=== PATIENT | female | born 1995 | race Caucasian/White ===

== ENCOUNTER 2016-10-29 14:55 | Observation (INO) | payer OTHER ==
[~2016-10-29] VITALS: Ht 165.1 cm; Wt 60.0 kg
[2016-10-29] MEDS ORDERED: SODIUM CHLORIDE 0.9% 1000ML 1,000 ML IV STA (16:21)
[2016-10-29] MEDS ORDERED: ONDANSETRON INJ 2 MG/ML 2 ML VIAL IV STA (16:21)
[2016-10-29 16:44] LABS: ALT/SGPT 24 U/L (12-78); AST/SGOT 24 U/L (15-37); BLOOD UREA NITROGEN 10 mg/dl (7-18); BUN/CREATININE RATIO 12.4 (10-20); CALCIUM 9.3 mg/dl (8.5-10.1); CARBON DIOXIDE 27 mmol/L (21-32); CHLORIDE 105 mmol/L (98-107); GLUCOSE 108 mg/dl (70-99); POTASSIUM 3.4 mmol/L (3.5-5.1); SODIUM 142 mmol/L (136-145)
[2016-10-29 16:47] LABS: BASO % 0.1 %; BASO ABS # 0.01 K/uL (0-0.2); COMPLETE YES; HEMATOCRIT 36.9 % (37-47); IG% 0.3 %; LYMPH % 5.8 %; LYMPH ABS # 0.68 K/uL (1.2-3.4); MEAN CELL VOLUME 88.1 fL (80-100); MEAN CORPUSCULAR HEMOGLOBIN 29.4 pg (25-34); MEAN CORPUSCULAR HGB CONC 33.3 g/dl (32-36); MONO % 2.9 %; NEUT % 90.9 %; PLATELET COUNT 353 K/uL (130-400); RED BLOOD COUNT 4.19 M/uL (4.2-5.4); WHITE BLOOD COUNT 11.74 K/uL (4.8-10.8)
[2016-10-29 16:47] LABS: ALKALINE PHOSPHATASE 79 U/L (45-117)
[2016-10-29] MEDS: MoRPHine SULFATE 4 MG/ML 1 ML CARP\\VIAL IV PRN ×3 (16:48→20:02)
[2016-10-29 16:56] LABS: PREG INTERNAL NEGATIVE QC NEG CLEAR BACKGROUND; PREG INTERNAL POSITIVE QC POS CONTROL LINE
[2016-10-29 16:58] LABS: PROTHROMBIN TIME (PATIENT) 11.2 SECONDS (9.0-12.0)
--- NOTE | 2016-10-29 17:37 | DIAGNOSTIC IMAGING REPORT ---
PA CHEST RADIOGRAPH AND UPRIGHT AND SUPINE AP RADIOGRAPHS OF THE ABDOMEN CLINICAL HISTORY: Abdominal pain and vomiting. COMPARISON STUDY: No previous studies for comparison. FINDINGS: Lung volumes are normal. Lungs are clear. There is no pneumothorax or pleural effusion. Cardiac size is normal. Mediastinal contours are normal. There is no evidence of pulmonary edema. There is no free air. The bowel gas pattern is normal. IMPRESSION: 1. No free air or evidence of bowel obstruction. 2. No acute cardiopulmonary findings. Electronically signed by: Jarett Bains M.D. 10/29/2016 5:36 PM Dictated Date/Time: 10/29/2016 5:35 PM
[2016-10-29] MEDS ORDERED: OPTIRAY 320 IV PRN (18:30)
[2016-10-29 19:04] LABS: URINE APPEARANCE CLEAR (CLEAR); URINE BILIRUBIN NEG (NEG); URINE COLOR DK YELLOW; URINE EPITHELIAL CELL AUTO >30 /lpf (0-5); URINE NITRITE NEG (NEG); URINE SPECIFIC GRAVITY 1.032 (1.000-1.030); UROBILINOGEN NEG (NEG)
[2016-10-29 19:05] LABS: MANUAL MICROSCOPIC REQUIRED? NO; REVIEW REQ? NO
[2016-10-29] MEDS ORDERED: SODIUM CHLORIDE 0.9% 1000ML 1,000 ML IV ONE (19:30)
[2016-10-29] MEDS ORDERED: ACETAMINOPHEN 500 MG TAB PO ONE (19:58)
--- NOTE | 2016-10-29 21:17 | DIAGNOSTIC IMAGING REPORT ---
CT OF THE ABDOMEN AND PELVIS WITH CONTRAST CLINICAL HISTORY: Mid abdominal pain. Hematemesis. COMPARISON STUDY: Abdominal series performed earlier today. TECHNIQUE: Following IV administration of 118 mL of Optiray-320, axial images of the abdomen and pelvis were obtained from the lung bases to the proximal femurs. Images were reviewed in the axial, sagittal, and coronal planes. IV contrast was administered without complication. Oral contrast was administered. CT DOSE: 293.25 mGy.cm FINDINGS: Lung bases are clear. Liver, spleen, adrenal glands, kidneys and pancreas are normal. There is no pneumatosis, free air or portal venous gas. There is no biliary or pancreatic ductal dilatation. Note is made of a tubular structure within the right hemipelvis that measures 9 mm in caliber. This does not contain oral contrast. This extends superiorly and is presacral in location. This appears to be blind ending and suggests an abnormal appendix. This contains gas and fluid. No definite periappendiceal infiltration is present. Evaluation is difficult given a paucity of intra-abdominal fat. There is no evidence for a bowel obstruction. Ovaries are not enlarged. IMPRESSION: Findings suspicious for but not diagnostic of acute appendicitis. A tubular structure within the right hemipelvis measures 9 mm in caliber and extends to the presacral region and appears to be blind ending. This suggests an abnormal appendix although evaluation is difficult given a paucity of intra-abdominal fat. Surgical consultation is recommended. Electronically signed by: Jarett Bains M.D. 10/29/2016 9:16 PM Dictated Date/Time: 10/29/2016 8:59 PM
[2016-10-29] MEDS ORDERED: BUPIVACAINE 0.5 % 5 MG/1 ML MPF 30ML VIAL ONE (22:08)
--- NOTE | 2016-10-29 22:09 | EMERGENCY ROOM VISIT NOTE ---
ED Visit Note First contact with patient: 15:55 Chief Complaint: Abdominal pain. History of Present Illness: Ms. William is a 21 year-old female who ambulates into the ED accompanied by male friend complaining of left upper quadrant abdominal pain. Historically patient reports no significant gastrointestinal disorders or abdominal surgeries. Patient reports yesterday she had 3-4 episodes of light brown watery stools but no abdominal pain. She had not taken anything for her watery stools prior to arrival at the hospital. Patient reports that a proximally 3-4 hours before she arrived in the emergency department she was sitting in a class and started having some mild abdominal discomfort. She reports it felt like she needed to go to the bathroom. She reports leaving the class and attempted to go to the bathroom but only passed gas. She then went back to class and when the class was dismissed she was leaving and became nauseated and had approximately 5 episodes of vomiting. She reports the last episode of vomiting she saw bright red blood in her vomitus. Some time during the vomiting process she reports that she developed right upper quadrant abdominal pain. Since that time her pain has been constant has gradually increased in intensity. Currently she describes her pain as a sharp sensation. She rates her discomfort 10/10. She denies true radiation but does report she feels a little bit of discomfort in the right flank. Her pain worsens with all movement of the body/torso. She has not identified any alleviating factors related to the pain. She has not taken any medications for pain or nausea/vomiting prior to arrival at the hospital. Associated with her pain she is still nauseated but has not vomited since prior to arrival at the hospital and she has been having chills, lightheadedness. Patient denies milagros fevers, sweats, skin eruptions, skin color changes, upper respiratory tract symptoms, shortness of breath, chest pain, return of diarrhea , constipation, rectal bleeding, black/tarry stools, urinary symptoms, hematuria , vaginal bleeding, vaginal discharge. Review of Systems: As noted above in history of present illness. All body systems were reviewed and found to be negative as noted above. Past Medical History: Bronchitis, pneumonia. Current Medications: Patient denies. Allergies to Medications: Patient denies. Social History: Patient is currently employed; she feels safe in her home environment; she denies tobacco use; she does admit to alcohol use but reports she has not been drinking for approximately one week. Physical Examination: Vital Signs: Date Time Temp Pulse Resp B/P Pulse Ox O2 Delivery O2 Flow Rate FiO2 10/29/16 21:29 117 10/29/16 19:59 37.7 10/29/16 17:44 79 18 96/52 100 Room Air 10/29/16 17:32 85 10/29/16 14:56 36.9 76 18 90/49 96 Room Air GENERAL: 21-year-old female in mild to moderate distress due to pain, nontoxic- appearing, afebrile and hemodynamically stable. NEUROLOGICAL: Awake, alert and oriented to person, place and time. Answering questions appropriately and following commands. Normal gait. Good hand eye coordination. SKIN: Warm, dry and pink. No soft tissue eruptions or trauma noted. HEENT: Atraumatic and normocephalic. PERRLA. Sclera white and conjunctiva pink. Oral cavity moist and pink. Pharynx is nonerythematous or edematous. Speech normal. No lymphadenopathy. Trachea midline. No jugular venous distention. BACK: No tenderness over the bony spine. No CVA tenderness. THORAX: Lungs sounds are clear to auscultation and equal bilaterally with symmetrical chest wall. No wheezing, rales or rhonchi. No crepitus, tenderness , subcutaneous air or deformities noted. HEART: Regular rate and rhythm. No gallops, rubs or murmurs are appreciated. ABDOMEN: Flat and soft with [id number] tenderness in the mid left upper quadrant and into the proximal upper left quadrant closer to the midline. No palpable epigastric tenderness or right-sided abdominal tenderness. Decreased bowel sounds in all quadrants. No guarding, rigidity or organomegaly. EXTREMITIES: Moves all extremities well on command and with purpose. All distal neurovascular statuses are intact and equal bilaterally. ED Course: Patient is assessed as noted above. Laboratory Testing: Test 10/29/16 16:05 10/29/16 16:32 10/29/16 18:50 Range/Units Sodium Level 142 136-145 mmol/L Potassium Level 3.4 3.5-5.1 mmol/L Chloride Level 105 98-107 mmol/L Carbon Dioxide Level 27 21-32 mmol/L Anion Gap 10.0 3-11 mmol/L Blood Urea Nitrogen 10 7-18 mg/dl Creatinine 0.80 0.60-1.20 mg/dl Est Creatinine Clear Calc Drug Dose 100.9 ml/min Estimated GFR () 123.0 Estimated GFR (Non- 106.1 BUN/Creatinine Ratio 12.4 10-20 Random Glucose 108 70-99 mg/dl Calcium Level 9.3 8.5-10.1 mg/dl Total Bilirubin 0.4 0.2-1 mg/dl Direct Bilirubin < 0.1 0-0.2 mg/dl Aspartate Amino Transf (AST/SGOT) 24 15-37 U/L Alanine Aminotransferase (ALT/SGPT) 24 12-78 U/L Alkaline Phosphatase 79 45-117 U/L Total Protein 8.4 6.4-8.2 gm/dl Albumin 4.5 3.4-5.0 gm/dl Lipase 74 73-393 U/L Human Chorionic Gonadotropin, Qual NEG NEG White Blood Count 11.74 4.8-10.8 K/uL Red Blood Count 4.19 4.2-5.4 M/uL Hemoglobin 12.3 12.0-16.0 g/dL Hematocrit 36.9 37-47 % Mean Corpuscular Volume 88.1 80-100 fL Mean Corpuscular Hemoglobin 29.4 25-34 pg Mean Corpuscular Hemoglobin Concent 33.3 32-36 g/dl Platelet Count 353 130-400 K/uL Mean Platelet Volume 9.0 7.4-10.4 fL Neutrophils (%) (Auto) 90.9 % Lymphocytes (%) (Auto) 5.8 % Monocytes (%) (Auto) 2.9 % Eosinophils (%) (Auto) 0.0 % Basophils (%) (Auto) 0.1 % Neutrophils # (Auto) 10.68 1.4-6.5 K/uL Lymphocytes # (Auto) 0.68 1.2-3.4 K/uL Monocytes # (Auto) 0.34 0.11-0.59 K/uL Eosinophils # (Auto) 0.00 0-0.5 K/uL Basophils # (Auto) 0.01 0-0.2 K/uL RDW Standard Deviation 42.6 36.4-46.3 fL RDW Coefficient of Variation 13.3 11.5-14.5 % Immature Granulocyte % (Auto) 0.3 % Immature Granulocyte # (Auto) 0.03 0.00-0.02 K/uL Prothrombin Time 11.2 9.0-12.0 SECONDS Prothromb Time International Ratio 1.0 0.9-1.1 Activated Partial Thromboplast Time 26.4 21.0-31.0 SECONDS Partial Thromboplastin Ratio 1.0 Urine Color DK YELLOW Urine Appearance CLEAR CLEAR Urine pH 6.0 4.5-7.5 Urine Specific [place] 1.032 1.000-1.030 Urine Protein TRACE NEG Urine Glucose (UA) NEG NEG Urine Ketones 4+ NEG Urine Occult Blood 2+ NEG Urine Nitrite NEG NEG Urine Bilirubin NEG NEG Urine Urobilinogen NEG NEG Urine Leukocyte Esterase TRACE NEG Urine WBC (Auto) 5-10 0-5 /hpf Urine RBC (Auto) 0-4 0-4 /hpf Urine Hyaline Casts (Auto) 1-5 0-5 /lpf Urine Epithelial Cells (Auto) >30 0-5 /lpf Urine Bacteria (Auto) 1+ NEG Acute Abdominal X-Ray Series: Was read by myself and the radiologist showing a normal-appearing PHS with no signs of infiltrates, effusions or pneumothorax. Normal heart silhouette and bony anatomy. Abdominal component shows a nonspecific bowel gas pattern with no signs of obstruction or free air. Contrast Abdominal/Pelvic CT: Was reviewed by myself and read by the radiologist and shows findings suspicious but not diagnostic for an acute appendicitis with a tubular structure within the right hemipelvis. Patient was hydrated with approximately 2 L of normal saline, she received a total of 12 mg of morphine IV for pain, 4 mg of Zofran IV for nausea and while in the emergency department she did become febrile and received 1 gram of Tylenol by mouth for pain. Patient was reassessed multiple times during her stay in the emergency department. I received her CT results I did go reevaluate the patient and on palpation she no longer had any tenderness on the left side of her abdomen but had moderate tenderness with guarding over McBurney's point. Patient's case was reviewed with Dr. Tian; we agreed on diagnostic approach, treatment, disposition and plan. Patient's case was consulted with Dr. Bronwyn Mcgee, general surgery; she surgically evaluated the patient and has recommended surgery. Patient was educated about tonight's findings. Clinical Impression: Acute abdominal pain. Possible acute appendicitis. Decision-Making: Initially my differential diagnosis I considered splenomegaly, constipation, bowel obstruction, perforated viscus, pancreatitis, gastritis, colitis and other causes. Disposition and Plan: Patient's care was transferred to Dr. Mcgee for surgical evaluation; please see her notes and orders for final disposition and plan.
[2016-10-29] MEDS ORDERED: CEFOXITIN SOD 2 GM VIAL IV STA (22:10)
--- NOTE | 2016-10-29 22:10 | Pre-Operative Consultation ---
History General Date of Service: Oct 29, 2016. Stated Complaint: abdominal pain HPI HPI: The patient is a 21 year old female being seen at the request of Fermin DOWNS for a CT scan that is suggestive of acute appendicitis. She presented to the ER complaining of 3-4 days of diarrhea and sharp crampy abdominal pain similar to gas cramps. Today, she developed vomiting on five occasions, the last of which had streaks of bright red blood in it. She felt lightheaded and dizzy and was brought to the ER by her friends. She developed a fever while in the ER and the pain changed to lower in the abdomen. CT scan was done and shows a blind ending 9 mm tubular structure presacral c/w acute appendicitis. Her last meal was at 11:30 am today. Historian: patient Anticipated Procedure: laparoscopic appendectomy Procedure Urgency: Emergency Risk Assessment Major Risk Factors: no known hx of decompensated CHF, no known hx of recent SD , no known hx of severe valvular disease, no known hx of unstable or severe angina Pre-Op Conditions: no known hx of COPD, no known hx of arrhythmia, no known hx of asthma, no known hx of cerebrovascular disease, no known hx of compensated CHF, no known hx of diabetes, no known hx of elevated BNP, no known hx of family h/o anesthesia problems, no known hx of h/o anesthesia problems, no known hx of h/o orthostatic intolerance, no known hx of history of SD, no known hx of implanted defibrillator, no known hx of liver disease, no known hx of other, no known hx of pacemaker, no known hx of problems w/ neck or jaw, no known hx of recent PCI, no known hx of renal insufficiency, no known hx of seizure disorder, no known hx of stable angina, no known hx of thyroid disease, no known hx of valvular heart disease Daily beta martine use?: No Medical & Surgical History Past Medical History: no pertinent history Past Surgical History: no surgical history Family History Family History: no pertinent family hx Social History Smoking Status: Never Smoker Occupation status: [employer] student Allergies Allergies: Coded Allergies: No Known Allergies (Unverified , 10/29/16) Medications Current Inpatient Medications Current Inpatient Medications Medications (Trade) Dose Ordered Sig/Laney Route Start Time Stop Time Status Last Admin Dose Admin Morphine Sulfate (MoRPHine SULFATE INJ) 4 mg Q1H PRN IV 10/29/16 16:30 11/12/16 16:29 10/29/16 20:02 4 MG Ioversol (Optiray 320) 100 ml UD PRN IV 10/29/16 18:30 11/02/16 18:29 Review of Systems Review of Systems Constitutional: fever, malaise Eyes: reports: no symptoms ENT: reports: no symptoms reported Cardiovascular: reports: no symptoms reported Respiratory: reports: short of breath (at time of vomiting) Gastrointestinal: see HPI Genitourinary - Female: reports: no symptoms Musculoskeletal: no symptoms reported Integumentary: no symptoms reported Psychiatric: reports: no symptoms Endocrine: no symptoms Physical Exam Physical Exam General Appearance: + WD/WN, No distress Ears, Nose, Throat: + normal ENT inspection Neck: No abnormal inspection, No limited range of motion Respiratory: No accessory muscle use, No chest tenderness, No decreased breath sounds Cardiovascular: No JVD, No abnormal rate, No diastolic murmur, No systolic murmur Abdomen: + tenderness (lower abdomen both right and left sides), No abnormal bowel sounds, No distension, No hernia Extremities: No abnormal range of motion, No edema Neurologic/Psychiatric: No abnormal advertising statistical clerk II-XII, No decreased LOC Skin Characteristics: No cyanosis, No mottling Diagnostics Labs Labs Results Past 24 Hours Test 10/29/16 16:05 10/29/16 16:32 10/29/16 18:50 Range/Units Sodium Level 142 136-145 mmol/L Potassium Level 3.4 3.5-5.1 mmol/L Chloride Level 105 98-107 mmol/L Carbon Dioxide Level 27 21-32 mmol/L Anion Gap 10.0 3-11 mmol/L Blood Urea Nitrogen 10 7-18 mg/dl Creatinine 0.80 0.60-1.20 mg/dl Est Creatinine Clear Calc Drug Dose 100.9 ml/min Estimated GFR () 123.0 Estimated GFR (Non- 106.1 BUN/Creatinine Ratio 12.4 10-20 Random Glucose 108 70-99 mg/dl Calcium Level 9.3 8.5-10.1 mg/dl Total Bilirubin 0.4 0.2-1 mg/dl Direct Bilirubin < 0.1 0-0.2 mg/dl Aspartate Amino Transf (AST/SGOT) 24 15-37 U/L Alanine Aminotransferase (ALT/SGPT) 24 12-78 U/L Alkaline Phosphatase 79 45-117 U/L Total Protein 8.4 6.4-8.2 gm/dl Albumin 4.5 3.4-5.0 gm/dl Lipase 74 73-393 U/L Human Chorionic Gonadotropin, Qual NEG NEG White Blood Count 11.74 4.8-10.8 K/uL Red Blood Count 4.19 4.2-5.4 M/uL Hemoglobin 12.3 12.0-16.0 g/dL Hematocrit 36.9 37-47 % Mean Corpuscular Volume 88.1 80-100 fL Mean Corpuscular Hemoglobin 29.4 25-34 pg Mean Corpuscular Hemoglobin Concent 33.3 32-36 g/dl Platelet Count 353 130-400 K/uL Mean Platelet Volume 9.0 7.4-10.4 fL Neutrophils (%) (Auto) 90.9 % Lymphocytes (%) (Auto) 5.8 % Monocytes (%) (Auto) 2.9 % Eosinophils (%) (Auto) 0.0 % Basophils (%) (Auto) 0.1 % Neutrophils # (Auto) 10.68 1.4-6.5 K/uL Lymphocytes # (Auto) 0.68 1.2-3.4 K/uL Monocytes # (Auto) 0.34 0.11-0.59 K/uL Eosinophils # (Auto) 0.00 0-0.5 K/uL Basophils # (Auto) 0.01 0-0.2 K/uL RDW Standard Deviation 42.6 36.4-46.3 fL RDW Coefficient of Variation 13.3 11.5-14.5 % Immature Granulocyte % (Auto) 0.3 % Immature Granulocyte # (Auto) 0.03 0.00-0.02 K/uL Prothrombin Time 11.2 9.0-12.0 SECONDS Prothromb Time International Ratio 1.0 0.9-1.1 Activated Partial Thromboplast Time 26.4 21.0-31.0 SECONDS Partial Thromboplastin Ratio 1.0 Urine Color DK YELLOW Urine Appearance CLEAR CLEAR Urine pH 6.0 4.5-7.5 Urine Specific [place] 1.032 1.000-1.030 Urine Protein TRACE NEG Urine Glucose (UA) NEG NEG Urine Ketones 4+ NEG Urine Occult Blood 2+ NEG Urine Nitrite NEG NEG Urine Bilirubin NEG NEG Urine Urobilinogen NEG NEG Urine Leukocyte Esterase TRACE NEG Urine WBC (Auto) 5-10 0-5 /hpf Urine RBC (Auto) 0-4 0-4 /hpf Urine Hyaline Casts (Auto) 1-5 0-5 /lpf Urine Epithelial Cells (Auto) >30 0-5 /lpf Urine Bacteria (Auto) 1+ NEG Lab Interpretation Lab Interpretation: labs were reviewed Diagnostic Radiology Diagnostic Radiology CT scan suggestive of acute appendicitis with a 9 mm blind ending tubular structure that does not fill with contrast. No periappendiceal inflammation. Impression Assessment and Plan Assessment and Plan 21 yr old woman with probable acute appendicitis although unusual presentation. Discussed laparoscopic appendectomy with risks of bleeding, infection, conversion to open, postop abscess/ ileus. Expected postop recovery period of 1- 2 wks discussed. Consent signed. For OR today.
[2016-10-29] MEDS ORDERED: PROPOFOL IV EMULSION 10 MG/ML 20 ML VIAL IV ONE (22:35)
[2016-10-29] MEDS ORDERED: SUCCINYLCHOLINE 100MG/5ML SYR IV ONE (22:36)
[2016-10-29] MEDS ORDERED: FENTANYL CITRATE INJ 50 MCG/1 ML 2 ML VIAL ONE ×2 (22:36→22:37)
[2016-10-29] MEDS ORDERED: DEXAMETHASONE SOD INJ 4 MG/ML VIAL ONE (22:38)
[2016-10-29] MEDS ORDERED: ONDANSETRON INJ 2 MG/ML 2 ML VIAL ONE (22:38)
[2016-10-29] MEDS ORDERED: MIDAZOLAM HCL 1 MG/ML 2ML VIAL ONE (22:38)
[2016-10-29] MEDS ORDERED: CISATRACURIUM BESYLATE IV SOLN 2 MG/ML 10 ML VIAL ONE (22:38)
[2016-10-29 22:45] VITALS: O2SAT 100
--- NOTE | 2016-10-29 23:50 | [facility] Post Operative Brief Note ---
Immediate Operative Summary Operative Date Oct 29, 2016. Pre-Operative Diagnosis Acute Appendicitis Post-Operative Diagnosis same as preop Procedure(s) Performed Laparoscopic appendectomy Surgeon Dr. Bronwyn Mcgee Environmental Services Technician Surgeon(s) none Estimated Blood Loss 5 ml Findings acute nonperforated appendicitis Fluids (cc crystalloids) 800 cc Specimens A: Appendix Drains none Anesthesia GET Complication(s) None Disposition Recovery Room / PACU
--- NOTE | 2016-10-29 23:55 | Discharge Instructions ---
Discharge Instructions Admission Reason for Admission: Stomach Pain, Vomiting Blood Discharge Discharge Diagnosis / Problem: ACUTE APPENDICITIS Discharge Goals Goal(s): Decrease discomfort Activity Recommendations Activity Limitations: resume your previous activity Lifting Limitations: no more than 10 pounds (for 2 wks) Exercise/Sports Limitations: until after follow-up appointment (2 wks) May Resume Sexual Activity: after two weeks Shower/Bathe: tomorrow (remove outer gauze dressings prior to shower, leave steristrips) Driving or Machine Use: resume 3 days after discharge (if off of narcotics) . Current Hospital Diet Patient's current hospital diet: Regular Diet Discharge Diet Recommended Diet: Regular Diet Procedures Procedures Performed: Laparoscopic appendectomy Pending Studies Studies pending at discharge: no School Instructions Return To School: 1 week Medical Emergencies . Who to Call and When: Medical Emergencies: If at any time you feel your situation is an emergency, please call 911 immediately. . Non-Emergent Contact Non-Emergency issues call your: Surgeon ([phone]) . "Provider Documentation" section prepared by Bronwyn Mcgee. VTE Core Measure Inpt VTE Proph given/why not?: SCD's [place] Drug Monitoring Program Search Results: no issues identified
[2016-10-30] VITALS (10 sets, daily range): BP systolic 81–105; BP diastolic 51–63; PULSE 68–92; TEMP 36.5–37.2; O2SAT 96–99; Ht 165.1 cm; Wt 60.0 kg
[2016-10-30] MEDS ORDERED: MoRPHine SULFATE 4 MG/ML 1 ML CARP\\VIAL IV PRN
[2016-10-30] MEDS ORDERED: MoRPHine SULFATE 2 MG/ML CARP IV PRN ×2
[2016-10-30] MEDS ORDERED: OXYCODONE/ACETAMINOPHEN 5-325 TAB PO PRN
[2016-10-30] MEDS ORDERED: ACETAMINOPHEN 325 MG TAB PO PRN
[2016-10-30] MEDS ORDERED: HYDROmorphone INJ 2 MG/ML SYR/VIAL ONE (00:05)
[2016-10-30] MEDS ORDERED: KETOROLAC TROMETHAMINE 30 MG/ML VIAL IV STA (00:09)
[2016-10-30] MEDS ORDERED: ATROPINE SULFATE 0.1 MG/ML 5ML SYR IV ONE (00:11)
[2016-10-30] MEDS ORDERED: HYDROmorphone INJ 1 MG/ML SYR IV PRN (00:15)
[2016-10-30] MEDS ORDERED: FLUMAZENIL 0.1 MG/1 ML 10 ML VIAL IV PRN (00:15)
[2016-10-30] MEDS ORDERED: ONDANSETRON INJ 2 MG/ML 2 ML VIAL IV PRN ×2 (00:15)
[2016-10-30] MEDS ORDERED: NALOXONE HCL 0.4 MG/1 ML VIAL/CARP IV PRN (00:15)
[2016-10-30] MEDS ORDERED: PROMETHAZINE HCL INJ 12.5 MG in SODIUM CHLORIDE 0.9% 50ML 50 ML IV PRN (00:15)
[2016-10-30] MEDS ORDERED: EpHEDrine SULFATE INJ 50 MG/ML AMP IV PRN (00:15)
[2016-10-30] MEDS ORDERED: ATROPINE SULFATE 0.1 MG/ML 5ML SYR IV PRN (00:15)
--- NOTE | 2016-10-30 00:34 | Anesthesiology Progress Note ---
Anesthesia Post Op Note Date & Time Oct 30, 2016 at 00:35 Vital Signs Pain Intensity: 2 Vital Signs Past 12 Hours Date Time Temp Pulse Resp B/P Pulse Ox O2 Delivery O2 Flow Rate FiO2 10/30/16 00:30 88 20 107/54 99 Nasal Cannula 3 10/30/16 00:20 88 20 110/60 98 Nasal Cannula 3 10/30/16 00:10 84 16 113/61 98 Nasal Cannula 3 10/30/16 00:01 38.1 89 16 112/67 95 Nasal Cannula 3 10/29/16 22:45 104 18 117/68 100 10/29/16 21:29 117 10/29/16 19:59 37.7 10/29/16 17:44 79 18 96/52 100 Room Air 10/29/16 17:32 85 10/29/16 14:56 36.9 76 18 90/49 96 Room Air Notes Mental Status: alert / awake / arousable, participated in evaluation Pt Amnestic to Procedure: Yes Nausea / Vomiting: adequately controlled Pain: adequately controlled Airway Patency, RR, SpO2: stable & adequate BP & HR: stable & adequate Hydration State: stable & adequate Anesthetic Complications: no major complications apparent
--- NOTE | 2016-10-30 00:42 | OPERATIVE REPORT ---
DATE OF OPERATION: 10/29/2016 PREOPERATIVE DIAGNOSIS: Acute appendicitis. POSTOPERATIVE DIAGNOSIS: Same. OPERATIVE PROCEDURE: Laparoscopic appendectomy. SURGEON: Dr. Bronwyn Mcgee. ANESTHESIA: General endotracheal anesthesia. ESTIMATED BLOOD LOSS: 5 mL IV FLUIDS: 800 mL. SPECIMENS: Appendix. COMPLICATIONS: None. DRAINS: None. OPERATIVE FINDINGS: Non-perforated acute appendicitis. INDICATIONS: Ms. William is a 21-year-old woman, who presented with acute appendicitis. She was consented for a laparoscopic appendectomy. PROCEDURE: The patient was on Mefoxin preoperatively. After the induction of general endotracheal anesthesia, she was placed in sequential compression devices. She had voided just prior to the procedure. Her abdomen was then sterilely prepped and draped. She was positioned in Trendelenburg. A supraumbilical incision was made and a Veress needle was placed into the peritoneal cavity. This was tested with the saline drop test. Pneumoperitoneum was established. Initial pressure was 1 mmHg and this was taken up to 15 mmHg. A 5-mm trocar was placed, another 5 mm was placed under direct vision in the left lower quadrant. The umbilical trocar was changed out to a 12 mm under direct vision and a 5 mm was placed in the midline pubic area. The appendix was visualized coursing into the pelvis; it was dilated, inflamed. The appendix was grasped at its base and a window created at the base of the appendix on the cecum. The appendix was divided off the cecum with a firing of the JETT 45 purple-load stapler. The appendiceal mesentery was taken with a second firing of the 45 jordan load stapler. The appendix was placed in an Endobag and removed through the umbilical incision. The abdomen was irrigated and suctioned. Hemostasis was noted to be present. Pneumoperitoneum was released. The trocars were removed. 30 mL of 0.5% Marcaine had been used for local anesthesia in all the incisions. The fascia of the umbilical incision was closed with 0 Vicryl stitches placed anteriorly. The skin of all 3 incisions was closed with running subcuticular 4-0 Vicryl sutures. Steri-Strips and sterile dressings were applied. She was awakened and taken to recovery in stable condition. I attest to the content of the Intraoperative Record and any orders documented therein. Any exceptio ns are noted below.
[2016-10-30] MEDS ORDERED: IV FLUIDS COMPLETED PRN (01:15)
[2016-10-30] MEDS: D5W AND 1/2NSS + 20MEQ KCL 1,000 ML IV SCH ×3 (01:34→17:30)
[2016-10-30] MEDS: OXYCODONE/ACETAMINOPHEN 5-325 TAB PO PRN ×3 (01:35→16:12)
[2016-10-30] MEDS ORDERED: NURSING VERBAL MED ORDER ONE (02:45)
[2016-10-30] MEDS ORDERED: LORAZEPAM INJ 1 MG in SYRINGE 0.5 ML IV PRN (03:00)
[2016-10-30] MEDS: CEFOXITIN IV 1,000 MG in DEXTROSE 5% 50ML 50 ML IV SCH ×3 (03:54→16:12)
--- NOTE | 2016-10-30 13:18 | Surgery Progress Note ---
Surgery Progress Note Date of Service Oct 30, 2016. Subjective Feels well. Pain controlled. No nausea. Has some shoulder pain. Objective Vital Signs: Date Time Temp Pulse Resp B/P Pulse Ox O2 Delivery O2 Flow Rate FiO2 10/30/16 11:44 36.6 72 18 96/61 96 Room Air 10/30/16 08:00 Room Air 10/30/16 07:54 36.7 72 17 94/60 96 Room Air 10/30/16 04:20 36.5 68 16 94/57 99 Nasal Cannula 1.0 10/30/16 03:05 36.9 77 16 93/51 99 Nasal Cannula 1.0 10/30/16 02:04 36.6 84 16 105/62 99 Nasal Cannula 2.0 10/30/16 01:27 36.6 91 16 98/58 99 Nasal Cannula 2.0 10/30/16 01:10 Nasal Cannula 2.0 10/30/16 01:10 37.2 92 16 103/63 Nasal Cannula 2.0 10/30/16 01:10 Nasal Cannula 3.0 10/30/16 01:00 37.2 92 16 103/63 97 Nasal Cannula 2.0 10/30/16 00:40 38 90 20 106/55 99 Nasal Cannula 3 10/30/16 00:30 88 20 107/54 99 Nasal Cannula 3 10/30/16 00:20 88 20 110/60 98 Nasal Cannula 3 10/30/16 00:10 84 16 113/61 98 Nasal Cannula 3 10/30/16 00:01 38.1 89 16 112/67 95 Nasal Cannula 3 10/29/16 22:45 104 18 117/68 100 10/29/16 21:29 117 10/29/16 19:59 37.7 10/29/16 17:44 79 18 96/52 100 Room Air 10/29/16 17:32 85 10/29/16 14:56 36.9 76 18 90/49 96 Room Air General Appearance: WD/WN, no apparent distress Head: normocephalic Neck: no adenopathy Respiratory/Chest: normal breath sounds, no respiratory distress, no accessory muscle use Cardiovascular: regular rate, rhythm Abdomen: normal bowel sounds, non tender, non distended, soft Incision(s): clean, dry, intact Extremities: no pedal edema Laboratory Results: Results Past 24 Hours Test 10/29/16 16:05 10/29/16 16:32 10/29/16 18:50 Range/Units Sodium Level 142 136-145 mmol/L Potassium Level 3.4 3.5-5.1 mmol/L Chloride Level 105 98-107 mmol/L Carbon Dioxide Level 27 21-32 mmol/L Anion Gap 10.0 3-11 mmol/L Blood Urea Nitrogen 10 7-18 mg/dl Creatinine 0.80 0.60-1.20 mg/dl Est Creatinine Clear Calc Drug Dose 100.9 ml/min Estimated GFR () 123.0 Estimated GFR (Non- 106.1 BUN/Creatinine Ratio 12.4 10-20 Random Glucose 108 70-99 mg/dl Calcium Level 9.3 8.5-10.1 mg/dl Total Bilirubin 0.4 0.2-1 mg/dl Direct Bilirubin < 0.1 0-0.2 mg/dl Aspartate Amino Transf (AST/SGOT) 24 15-37 U/L Alanine Aminotransferase (ALT/SGPT) 24 12-78 U/L Alkaline Phosphatase 79 45-117 U/L Total Protein 8.4 6.4-8.2 gm/dl Albumin 4.5 3.4-5.0 gm/dl Lipase 74 73-393 U/L Human Chorionic Gonadotropin, Qual NEG NEG White Blood Count 11.74 4.8-10.8 K/uL Red Blood Count 4.19 4.2-5.4 M/uL Hemoglobin 12.3 12.0-16.0 g/dL Hematocrit 36.9 37-47 % Mean Corpuscular Volume 88.1 80-100 fL Mean Corpuscular Hemoglobin 29.4 25-34 pg Mean Corpuscular Hemoglobin Concent 33.3 32-36 g/dl Platelet Count 353 130-400 K/uL Mean Platelet Volume 9.0 7.4-10.4 fL Neutrophils (%) (Auto) 90.9 % Lymphocytes (%) (Auto) 5.8 % Monocytes (%) (Auto) 2.9 % Eosinophils (%) (Auto) 0.0 % Basophils (%) (Auto) 0.1 % Neutrophils # (Auto) 10.68 1.4-6.5 K/uL Lymphocytes # (Auto) 0.68 1.2-3.4 K/uL Monocytes # (Auto) 0.34 0.11-0.59 K/uL Eosinophils # (Auto) 0.00 0-0.5 K/uL Basophils # (Auto) 0.01 0-0.2 K/uL RDW Standard Deviation 42.6 36.4-46.3 fL RDW Coefficient of Variation 13.3 11.5-14.5 % Immature Granulocyte % (Auto) 0.3 % Immature Granulocyte # (Auto) 0.03 0.00-0.02 K/uL Prothrombin Time 11.2 9.0-12.0 SECONDS Prothromb Time International Ratio 1.0 0.9-1.1 Activated Partial Thromboplast Time 26.4 21.0-31.0 SECONDS Partial Thromboplastin Ratio 1.0 Urine Color DK YELLOW Urine Appearance CLEAR CLEAR Urine pH 6.0 4.5-7.5 Urine Specific [place] 1.032 1.000-1.030 Urine Protein TRACE NEG Urine Glucose (UA) NEG NEG Urine Ketones 4+ NEG Urine Occult Blood 2+ NEG Urine Nitrite NEG NEG Urine Bilirubin NEG NEG Urine Urobilinogen NEG NEG Urine Leukocyte Esterase TRACE NEG Urine WBC (Auto) 5-10 0-5 /hpf Urine RBC (Auto) 0-4 0-4 /hpf Urine Hyaline Casts (Auto) 1-5 0-5 /lpf Urine Epithelial Cells (Auto) >30 0-5 /lpf Urine Bacteria (Auto) 1+ NEG Assessment & Plan s/p lap appendectomy for acute appendicitis. Doing well. Will plan on discharge today.
[2016-10-30] MEDS ORDERED: OXYC-57 PO (13:19)
--- NOTE | 2016-10-30 13:21 | Discharge Instructions ---
Discharge Instructions Admission Reason for Admission: Appendicitis Discharge Discharge Diagnosis / Problem: appendicitis Discharge Goals Goal(s): Decrease discomfort Activity Recommendations Activity Limitations: resume your previous activity Lifting Limitations: no more than 10 pounds (for 2 wks) Exercise/Sports Limitations: until after follow-up appointment (2 wks) May Resume Sexual Activity: after two weeks Shower/Bathe: tomorrow (remove outer gauze dressings first) Driving or Machine Use: resume 3 days after discharge (if off of narcotics) . Current Hospital Diet Patient's current hospital diet: Regular Diet Discharge Diet Recommended Diet: Regular Diet Procedures Procedures Performed: Laparoscopic appendectomy Pending Studies Studies pending at discharge: no School Instructions Return To School: 1 week Medical Emergencies . Who to Call and When: Medical Emergencies: If at any time you feel your situation is an emergency, please call 911 immediately. . Non-Emergent Contact Non-Emergency issues call your: Surgeon Contact Number: [phone]. Call to schedule postop appt for 2 wks . "Provider Documentation" section prepared by Bronwyn Mcgee. VTE Core Measure Inpt VTE Proph given/why not?: SCD's [place] Drug Monitoring Program Search Results: no issues identified
--- NOTE | 2016-10-30 13:22 | Discharge Summary ---
Discharge Summary Date of Service Oct 30, 2016. Admission Date/Reason Oct 29, 2016 at 23:53 Appendicitis. Discharge Date/Disposition Oct 30, 2016 Home Diagnosis Principal Diagnosis: acute appendicitis Procedure(s) Performed laparoscopic appendectomy 10/29/16 Medication Reconciliation New Medications: Oxycodone/Acetaminophen 5MG/325MG (Percocet 5MG/325MG) Tab 1-2 TAB PO Q4H for Pain for 30 Days, TAB PAIN Admission Physical Exam As per Admitting History & Physical. Hospital Course 21 yr old woman with uncomplicated postop course following lap appendectomy for acute appendicitis. Stable for discharge on POD#1. Discharge Instructions Please refer to the electronic Patient Visit Report (Discharge Instructions) for additional information.
[2016-10-30] MEDS ORDERED: KETOROLAC TROMETHAMINE 30 MG/ML VIAL IV. ONE (20:06)
[2016-10-30] MEDS ORDERED: ONDANSETRON INJ 2 MG/ML 2 ML VIAL IV ONE (20:06)
== END 2016-10-30 20:07 | disposition home or self-care (01) ==
LOC: ENRESERVDT → ENRESERVTM → C.EDB 14:56 → C.MSN 23:53
PROVIDERS: ADMIT Surgery; ATTEND Surgery
DX: K35.80 Unspecified acute appendicitis (principal)